=== PATIENT | male | born 1960 | race Caucasian/White ===

== ENCOUNTER → 2021-06-06 08:34 | Outpatient (CLI) | payer OTHER, SELFPAY ==
--- NOTE | ~2021-06-06 | XR_ITS ---
EXAMINATION: XR lumbar spine 2-3V DATE: 06/06/2021 08:48 INDICATION: Low back pain TECHNIQUE: Anteroposterior and lateral views of the lumbar spine, and cone-down lateral view of the l umbosacral junction were obtained. COMPARISON: None. FINDINGS: There is no fracture, dislocation, or subluxation. The vertebral body heights are maintaine d. There is mild loss of intervertebral disc space height throughout the lumbar spine. Small degenera tive osteophytes project from the anterior endplates of multiple vertebral bodies. There is mild face t osteoarthritis of the lower lumbar spine. Calcified atherosclerosis is noted. IMPRESSION: 1. Mild lumbar spondylosis without acute findings. Reviewed, dictated and finalized at location A. [employer]MENT MAINTENANCE TECHNICIAN
== END ==
PROVIDERS: PCP Family Medicine; Visit Provider Family Medicine
DX: M47.896 Other spondylosis, lumbar region (principal)
CPT/HCPCS: 72100

== ENCOUNTER 2022-11-26 17:23 | Emergency (ER) | payer OTHER, SELFPAY ==
[2022-11-26 17:38] VITALS: BP 139/70; PULSE 74; RESP 16; TEMP 37.5; O2SAT 99
--- NOTE | 2022-11-26 18:16 | ED.GENADULT ---
HPI - General Adult General Chief complaint: Upper Respiratory Infection Stated complaint: Sore Throat,Fatigue Source: patient Mode of arrival: ambulatory Limitations: no limitations History of Present Illness HPI narrative: 62-year-old male presents to [facility] with complaints of pain, erythema, warmth to his right lower leg for the past 2-3 days. Patient reports that he was scratched by his dog to his right posterior leg approximately 1 week ago. Patient reports that he then started 2 days ago with body aches, chills and fatigue. Patient reports he had a fever up to 101 this afternoon. 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 Patient reports his last tetanus shot was within 1 year ago Onset (ago): day(s) (2-3) Location: right and lower extremity Relieving factors: none Exacerbating factors: none Associated symptoms: denies other symptoms Treatments prior to arrival: NSAID Related Data Allergies Allergy/AdvReac Type Severity Reaction Status Date / Time No Known Allergies Allergy Unverified 06/04/22 10:19 Review of Systems Constitutional: Constitutional: Reports chills, Reports fatigue, Reports fever(s) and Denies weakness ENT: Denies vertigo and Denies dizziness Cardiovascular: Cardiovascular: Denies chest pain Respiratory: Respiratory: Denies cough, Denies dyspnea and Denies wheezing Gastrointestinal: Gastrointestinal: Denies diarrhea, Denies nausea and Denies vomiting Integumentary/Breasts: Skin/Breast: Reports erythema Comments: Area of redness, swelling, warmth to right lower leg Neurologic: Denies dizziness, Denies syncope and Denies headache(s) [facility] Surgical History Surgical History Dislocated shoulder Family History Family History Mother Hypertension Social History Social History Smoking packs per day: 1 Smoking cigarettes per day: 20.0 Years smoked: 20 Smoking pack-years: 20.00 Smoking status: Former smoker Tobacco type: cigarettes Second hand tobacco smoke exposure: No Smoking end date: 04/22/95 Alcohol intake: current Alcohol use details: rare Substance use: current Substance use type: marijuana Living arrangements: with family Occupation/Education: occupation Gender identity (if verbalized by the patient): Male Comments At time of signature, I agree with nursing past medical, surgical, social and family history. There is no relevant family history pertinent to the presenting complaint. Exam Const: General: healthy appearing and no acute distress Nutritional Appearance: well nourished Orientation/consciousness: patient oriented x3 HENMT: Head: normal to inspection Eyes: Conjunctivae: conjunctivae normal Neck: Neck: normal visual inspection Resp: Effort & Inspection: normal respiratory effort and not labored Auscultation: clear to auscultation bilaterally, no crackles, no rales, no rhonchi and no wheezes Cardio: Rate: regular rate Rhythm: regular rhythm Heart sounds: no murmurs Skin: Other: There is a healing 1 cm vertical wound noted to posterior aspect of right lower leg with mild surrounding erythema. There is a 20 x 15 cm area of erythema, warmth and mild swelling noted to right lower leg. There is no bruising, bleeding or active drainage noted Neuro: General: patient oriented x3 Speech: normal speech Gait exam (Neuro): Normal gait present Extrem: Other: See skin assessment Psych: Affect: normal affect Attitude: cooperative Course Course Level of Care: Express Care Visit Vital Signs Vital signs: Vital Signs Temperature 37.5 C 11/26/22 17:38 Pulse Rate 74 11/26/22 17:38 Respiratory Rate 16 11/26/22 17:38 Blood Pressure 139/70 11/26/22 17:38 Pulse Oximetry 99
== END 2022-11-26 18:33 | disposition left against medical advice (07) ==
PROVIDERS: Emergency Provider Nurse Practitioner Family
DX: L03.115 Cellulitis of right lower limb (principal); Z87.891 Personal history of nicotine dependence; F12.90 Cannabis use, unspecified, uncomplicated
CPT/HCPCS: 99213; G0463